=== PATIENT | male | born 2000 | race Caucasian/White ===

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

== ENCOUNTER 2018-01-07 21:04 | Emergency (ER) | payer OTHER ==
[2018-01-07] MEDS ORDERED: Ibuprofen 600 MG TAB ONE (21:30)
--- NOTE | 2018-01-07 22:04 | RAD ---
RADIOGRAPH LEFT FOOT 3 VIEWS: 01/07/18 HISTORY: 17-year-old male status post acute traumatic injury to left foot. FINDINGS: There is no fracture, dislocation, or any other major osseous abnormality. IMPRESSION: Negative. POS: [facility]
--- NOTE | 2018-01-07 22:05 | RAD ---
RADIOGRAPH LEFT ANKLE 3 VIEWS: 01/07/18 HISTORY: 17-year-old male status post acute traumatic injury to the ankle. FINDINGS: No fracture, dislocation, or subluxation. Ankle mortise is symmetrical. IMPRESSION: Negative. POS: [facility]
== END 2018-01-07 22:14 | disposition home or self-care (01) ==
LOC: SCSER 21:04
DX: S93.602A Unspecified sprain of left foot, initial encounter (principal); F90.9 Attention-deficit hyperactivity disorder, unspecified type; K21.9 Gastro-esophageal reflux disease without esophagitis; J45.909 Unspecified asthma, uncomplicated; X50.9XXA Other and unspecified overexertion or strenuous movements or postures, initial encounter; Y93.51 Activity, roller skating (inline) and skateboarding

== ENCOUNTER 2018-03-01 18:27 | Emergency (ER) | payer OTHER ==
[2018-03-01] MEDS ORDERED: Ondansetron HCl/PF 4 MG/2 ML Vial ONE (19:21)
[2018-03-01] MEDS ORDERED: Pantoprazole 40 MG VIAL ONE (19:33)
[2018-03-01 19:55] LABS: Bilirubin Small (Negative); Blood, Urine Negative (Negative); Clarity Slightly Cloudy (Clear); Glucose, Urine (Dipstick) Negative (Negative); Leukocyte Negative (Negative); Nitrite Negative (Negative); Protein, Urine (Dipstick) 30 mg/dL (Neg-Trace); Specific Gravity, Urine 1.025 (1.005-1.030)
[2018-03-01 19:59] LABS: RBC/HPF 0-3 HPF (0-3); Squamous Epithelial 0-3 HPF (0-3); WBC/HPF 0-3 HPF (0-3)
[2018-03-01 20:00] LABS: ALT (SGPT) 15 U/L (8-55); AST (SGOT) 19 U/L (10-45); Albumin 4.5 g/dL (3.5-5.0); Alkaline Phosphatase 67 U/L (Less than 750); Anion Gap 17 mmol/L (10-20); BUN (Urea Nitrogen) 18 mg/dL (8.4-21.0); Bilirubin, Total 1.3 mg/dL (0.2-1.2); Calc. Creatinine Clearance 0 mL/min (70-130); Calcium 9.2 mg/dL (7.8-10.44); Carbon Dioxide 23 mmol/L (22-29); Chloride 101 mmol/L (98-107); Estimated GFR-MDRD Greater than 90; Globulin 2.1 g/dL (2.4-3.5); Glucose 97 mg/dL (70-105); Lipase 8 U/L (8-78); Potassium 3.5 mmol/L (3.5-5.1); Protein, Total 6.6 g/dL (6.0-8.3); Sodium 137 mmol/L (136-145)
[2018-03-01 20:01] LABS: Amphetamine Not Detected (NotDetected); Barbiturates Screen Not Detected (NotDetected); Benzodiazepine Screen Not Detected (NotDetected); Cocaine Metabolite Screen Not Detected (NotDetected); Medtox Control Line Valid? VALID (VALID); Methadone Not Detected (NotDetected); Methamphetamine Not Detected (NotDetected); Opiate Screen Not Detected (NotDetected); Oxycodone Screen Not Detected (NotDetected); Phencyclidine (PCP) Not Detected (NotDetected); THC/Cannabinoid Screen Detected (NotDetected); Tricyclic Screen Not Detected (NotDetected)
[2018-03-01 20:06] LABS: MDiff Complete? YES
[2018-03-01 20:17] LABS: Hemoglobin 17.2 g/dL (14.0-18.0); Mean Corpuscular HGB CONC 36.5 g/dL (32.0-36.0); Mean Corpuscular Hemoglobin 32.3 pg (25.0-35.0); Mean Corpuscular Volume 88.5 fl (77.0-87.0); Mean Platelet Volume 8.7 fL (7.4-10.4); Platelet Count 166 thou/uL (130-400); RBC Distribution Width 9.7 % (11.5-14.5); Red Blood Cell (RBC) Count 5.31 mill/uL (4.00-5.20); White Blood Cell (WBC) Count 9.4 thou/uL (4.8-10.8)
[2018-03-01 20:19] LABS: Band 24 % (5-11); Lymphocytes 5 % (28-48); Monocytes 2 % (0-4); Neutrophil 66 % (31-61); PLT Morphology Comment Appears Adequate; Reactive Lymphocytes 3 % (0-10)
--- NOTE | 2018-03-01 20:35 | RAD ---
ACUTE ABDOMINAL SERIES: 03/01/18 INDICATION: Nausea and vomiting. FINDINGS: Lungs are clear. The cardiomediastinal silhouette is within normal limits. No pneumoperitoneum is jose dent. Bowel gas pattern is unobstructed. Surgical clips are seen in the right upper quadrant. There i s slight leftward curvature of the lumbar spine. No acute osseous abnormality is evident. IMPRESSION: No definite acute abnormality. POS: [facility]
== END 2018-03-01 20:43 | disposition home or self-care (01) ==
LOC: SCSER 18:27
DX: R11.2 Nausea with vomiting, unspecified (principal); F90.9 Attention-deficit hyperactivity disorder, unspecified type; K21.9 Gastro-esophageal reflux disease without esophagitis; J45.909 Unspecified asthma, uncomplicated
CPT/HCPCS: 74022; 80053; 80306; 81003; 81015; 83690; 85025; 96374; 96375; C9113; J2405